=== PATIENT | female | born 1940 | race Caucasian/White ===

== ENCOUNTER 2017-12-13 12:25 | Emergency (ER) | payer MEDICARE, OTHER, BC ==
[2017-12-13 13:16] LABS: ADD MAN DIFF? NO
[2017-12-13 13:21] LABS: WHITE BLOOD COUNT 7.4 10^3/ul (4.8-10.8)
[2017-12-13 13:22] LABS: BASOPHIL # 0.1 10^3/ul (0.0-0.1); BASOPHILS % 0.7 % (0.0-2.0); EOSINOPHILS # 0.3 10^3/ul (0.0-0.5); HEMATOCRIT 30.8 % (37.0-47.0); HEMOGLOBIN 9.9 g/dl (12.0-16.0); LYMPHOCYTES # 1.1 10^3/ul (0.8-2.9); LYMPHOCYTES % 14.6 % (15.0-51.0); MEAN CORPUSCULAR HEMOGLOBIN 28.3 pg (29.0-33.0); MEAN CORPUSCULAR HGB CONC 32.1 g/dl (32.0-37.0); MEAN PLATELET VOLUME 9.2 fl (7.4-10.4); MONOCYTE # 0.9 10^3/ul (0.3-0.9); MONOCYTES % 12.1 % (0.0-11.0); NEUTROPHIL # 5.1 10^3/ul (1.6-7.5); NEUTROPHILS % 68.5 % (39.0-77.0); PLATELET COUNT 332 10^3/UL (140-415); RED CELL DISTRIBUTION WIDTH 13.7 % (11.5-14.5)
[2017-12-13 13:27] LABS: AADO2 Venous 57.4 mmHg; MODE ROOM AIR; MetHgb Venous 0.2 %; Sample Type Blood venous; Site OTHER; Venous COHb 0.6 %; Venous Fraction OxyHgb 82.5 %; Venous Oxygen Sat 83.2 mmHG (55.0-75.0); Venous Total Hemglobin 11.2 g/dl
[2017-12-13 13:41] LABS: ANION GAP 9 (5-13); BLOOD UREA NITROGEN 12 mg/dl (7-20); CALCIUM 8.6 mg/dl (8.4-10.2); CARBON DIOXIDE 25 mmol/L (21-31); CHLORIDE 108 mmol/L (97-110); CREATININE 0.66 mg/dl (0.44-1.00); GLUCOSE 79 mg/dl (70-220); POTASSIUM 3.6 mmol/L (3.5-5.1); SODIUM 142 mmol/L (135-144)
[2017-12-13] MEDS: SOD CHLORIDE 0.9% 500 ML IV (13:47)
[2017-12-13 13:49] LABS: URINE PH (Dip) POC 5.5 (5.0-8.5)
[2017-12-13 13:49] LABS: B-TYPE NATRIURETIC PEPTIDE 1400 PG/ML (0-450); URINE BLOOD (Dip) POC Negative (NEGATIVE); URINE GLUCOSE (Dip) POC Negative (NEGATIVE); URINE KETONES (Dip) POC Negative (NEGATIVE); URINE LEUKOCYTE EST (Dip) POC Negative (NEGATIVE); URINE NITRITE (Dip) POC Negative (NEGATIVE); URINE TOTAL PROTEIN POC Trace (NEGATIVE)
[2017-12-13 13:54] LABS: TROPONIN-I < 0.012 ng/ml (0.000-0.120)
== END 2017-12-13 15:41 | disposition home or self-care (01) ==
LOC: E/R 12:25
DX: R09.89 Other specified symptoms and signs involving the circulatory and respiratory systems (principal); R06.00 Dyspnea, unspecified; I10 Essential (primary) hypertension
CPT/HCPCS: 36415; 71045; 80048; 81003; 82803; 83605; 83880; 84484; 85025; 99285-25